=== PATIENT | female | born 1940 | race Caucasian/White ===

== ENCOUNTER → 2016-11-20 14:52 | Outpatient (CLI) | payer MEDICARE, OTHER | END | disposition home or self-care (01) | LOC: D.MRI 14:52 | DX: G35 Multiple sclerosis (principal) ==

== ENCOUNTER → 2017-03-28 13:19 | Outpatient (CLI) | payer MEDICARE, OTHER | END | disposition home or self-care (01) | LOC: D.MRI 03-26 13:00 | DX: M54.5 Low back pain (principal) ==

== ENCOUNTER → 2017-12-04 15:40 | Outpatient (CLI) | payer MEDICARE, OTHER | END | disposition home or self-care (01) | LOC: D.MRI 15:40 | DX: G35 Multiple sclerosis (principal); R26.9 Unspecified abnormalities of gait and mobility ==

== ENCOUNTER → 2019-03-13 12:29 | Outpatient (CLI) | payer MEDICARE, OTHER | END | disposition home or self-care (01) | LOC: D.MRI 12:29 | DX: G35 Multiple sclerosis (principal) ==

== ENCOUNTER → 2020-12-20 14:44 | Outpatient (CLI) | payer MEDICARE, OTHER | END | disposition home or self-care (01) | LOC: D.MRI 14:44 | PROVIDERS: ATTEND Psychiatry & Neurology Neurology | DX: G35 Multiple sclerosis (principal) ==